=== PATIENT | male | born 1945 | race Caucasian/White ===

== ENCOUNTER → 2019-04-11 | Outpatient (CLI) | payer MEDICARE, OTHER ==
[~2019-04-11] MED LIST: ALEVE 220MG220 MG PO; ALTACE5 MG PO; HYDROCODONE/APAP; PERCOCET 325 MG1 TA2 PO; ULTRAM 50MG TAB50 MG PO; ZITHROMAX Z PA250 MG PO
== END ==
LOC: COL.VAS 08:25
DX: I49.3 Ventricular premature depolarization (principal); I51.7 Cardiomegaly; I34.0 Nonrheumatic mitral (valve) insufficiency

== ENCOUNTER → 2019-08-27 | Outpatient (CLI) | payer MEDICARE, OTHER | LOC: COL.VAS 10:10 | DX: R59.0 Localized enlarged lymph nodes (principal); R60.0 Localized edema; Z85.828 Personal history of other malignant neoplasm of skin ==

== ENCOUNTER → 2020-05-20 | Outpatient (CLI) | payer MEDICARE, OTHER | LOC: COL.RAD 06:55 | DX: K57.30 Diverticulosis of large intestine without perforation or abscess without bleeding (principal); K86.1 Other chronic pancreatitis; K76.9 Liver disease, unspecified; Z90.49 Acquired absence of other specified parts of digestive tract; Z90.89 Acquired absence of other organs ==

== ENCOUNTER → 2020-05-31 | Outpatient (CLI) | payer MEDICARE, OTHER ==
[2020-05-31] VITALS (14 sets, daily range): BP systolic 101–145; BP diastolic 70–82; PULSE 78–112
[~2020-05-31] VITALS: Ht 167.6 cm; Wt 56.6 kg
[~2020-05-31] MED LIST changes: +ALTACE 5MG5 MG PO; +PROSCAR 5MG5 MG PO; +SYNTHROID0.075 MG/T PO
[2020-05-31 11:43] LABS: PROTHROMBIN TIME 11.2 SECONDS (9.7-12.8)
== END ==
LOC: COL.RAD 10:45
PROVIDERS: Family Medicine
DX: J43.9 Emphysema, unspecified (principal); R59.0 Localized enlarged lymph nodes; K76.89 Other specified diseases of liver; R91.8 Other nonspecific abnormal finding of lung field
CPT/HCPCS: Q9967